=== PATIENT | male | born 1995 | race Caucasian/White ===

== ENCOUNTER 2018-05-10 03:02 | Emergency (ER) | payer OTHER ==
[2018-05-10 03:14] VITALS: BP 165/75
[2018-05-10] MEDS ORDERED: IBUPROFEN 800 MG TABLET PO ONE (04:12)
--- NOTE | 2018-05-10 04:29 | ER Document Report ---
HPI - HPI Patient complains to provider of: Left ear pain Time Seen by Provider: 05/10/18 03:56 Pain Level: 4 Context: Patient is a 22-year-old male presents to the emergency department for left ear pain. Patient states he has had a generalized cough and congestion for the last 24 hours woke up this evening with pain in his left ear. Patient denies taking any medications prior to arrival to the emergency room. Allergies : Penicillin Past Medical History - General Information source: Patient - Social History Smoking Status: Unknown if Ever Smoked Family History: Reviewed & Not Pertinent Vertical Provider Document - CONSTITUTIONAL Agree With Documented VS: Yes Notes: GENERAL: Alert, interacts well. No acute distress. HEAD: Normocephalic, atraumatic. EYES: Pupils equal, round, and reactive to light. Extraocular movements intact. ENT: Oral mucosa moist, tongue midline. Nares patent, TM's intact, right TM nonerythematous, nonbulging. Left TM erythematous and bulging. No tragal tenderness noted. No mastoid erythema or tenderness noted. Pharynx mildly erythematous no palatal petechiae noted. NECK: Full range of motion. Supple. Trachea midline. No lymphadenopathy appreciated LUNGS: Clear to auscultation bilaterally, no wheezes, rales, or rhonchi. No respiratory distress. HEART: Regular rate and rhythm. No murmur ABDOMEN: Soft, non-tender. Non-distended. Bowel sounds present in all 4 quadrants. EXTREMITIES: Moves all 4 extremities spontaneously. No edema, normal radial and dorsalis pedis pulses bilaterally. No cyanosis. BACK: no cervical, thoracic, lumbar midline tenderness. No saddle anesthesia, normal distal neurovascular exam. NEUROLOGICAL: Alert and oriented x3. Normal speech. cranial nerves II through XII grossly intact. PSYCH: Normal affect, normal mood. SKIN: Warm, dry, normal turgor. No rashes or lesions noted. - INFECTION CONTROL TRAVEL OUTSIDE OF THE [place] IN LAST 30 DAYS: No Course - Re-evaluation Re-evalutation: 05/10/18 04:26 Patient does appear with left otitis media. Discussed antibiotic use , Pain medication and close follow-up. Patient stable for discharge. - Vital Signs Vital signs: Temp Pulse Resp BP Pulse Ox 98.4 F 98 16 165/75 H 98 05/10/18 03:11 05/10/18 03:11 05/10/18 03:11 05/10/18 03:11 05/10/18 03:11 Discharge - Discharge Clinical Impression: Otitis media Qualifiers: Otitis media type: unspecified Chronicity: acute Qualified Code(s): H66.90 - Otitis media, unspecified, unspecified ear Condition: Stable Disposition: HOME, SELF-CARE Instructions: Otitis Media ([facility]) Additional Instructions: As we discussed you have been seen and treated in the emergency department for a left ear infection. Please take antibiotics as prescribed and follow-up with your primary care provider in the next 24-48 hours. Please take [id number] r Tylenol and Motrin for generalized fever and pain. Please return to the emergency room for any other concerning symptoms. Prescriptions: Cefdinir 300 mg PO BID 7 Days capsule Forms: Return to Work
== END 2018-05-10 04:46 | disposition home or self-care (01) ==
LOC: ER 03:02
DX: H66.90 Otitis media, unspecified, unspecified ear (principal); H92.02 Otalgia, left ear; R05 Cough
CPT/HCPCS: 99282